=== PATIENT | male | born 1960 | race Caucasian/White ===

== ENCOUNTER 2019-03-04 21:43 | Emergency (ER) | payer SELFPAY ==
[2019-03-04 22:22] LABS: Absolute Lymphocytes (CBC) 1.5 K/uL (0.7-4.9); Basophils % 0.2 % (0-1.3); Hematocrit 53.7 % (39.6-49.0); Lymphocytes % 12.4 % (15.3-44.8); MPV 7.6 fL (7.6-11.3); RBC Red Blood Cell Count 5.75 M/uL (4.33-5.43)
[2019-03-04 22:37] LABS: ALT/SGPT 43 U/L (12-78); AST/SGOT 17 U/L (15-37); Albumin 3.9 g/dL (3.4-5.0); Alkaline Phosphatase 97 U/L (45-117); BUN Blood Urea Nitrogen 10 mg/dL (7-18); Bicarbonate 25 mmol/L (21-32); Bilirubin Total 0.7 mg/dL (0.2-1.0); Glucose Level 118 mg/dL (74-106); Lipase 563 U/L (73-393); Potassium 3.8 mmol/L (3.5-5.1); Protein, Total 8.5 g/dL (6.4-8.2); Sodium Level 137 mmol/L (136-145)
[2019-03-04] MEDS ORDERED: ONDANSETRON 4 MG/2 ML VIAL ONE (23:06)
--- NOTE | 2019-03-05 00:59 | EDPHYS ---
Physician Documentation [facility] Name: Kurtis Cross Age: 58 yrs Sex: Male : 1960 Arrival Date: 03/04/2019 Time: 21:46 Bed 5 Private MD: ED Physician Wing Tellez Historical: - Allergies: 03/04 22:09 Benadryl; aa1 - Home Meds: 22:09 None [Active]; aa1 - PMHx: 22:09 osteomyelitis; aa1 - PSHx: 22:09 arms sx r/t osteomyelitis; aa1 - Immunization history:: Flu vaccine is not up to date. - Social history:: Smoking status: Patient uses tobacco products, smokes one pack cigarettes per day. - Ebola Screening: : Patient denies exposure to infectious person Patient denies travel to an Ebola-affected area in the 21 days before illness onset. Vital Signs: 22:09 BP 151 / 111; Pulse 104; Resp 20; Temp 97.8; Pulse Ox 97% on R/A; Weight 78.02 kg; aa1 Height 5 ft. 8 in. (172.72 cm); Pain 7/10; 23:30 BP 147 / 99; Pulse 95; Resp 17 S; Pulse Ox 97% on R/A; Pain 7/10; jd3 03/05 00:56 BP 131 / 99; Pulse 96; Resp 18 S; Pulse Ox 97% on R/A; Pain 7/10; jd3 03/04 22:09 Body Mass Index 26.15 (78.02 kg, 172.72 cm) aa1 MDM: 03/04 22:11 Patient medically screened. ps1 03/04 22:09 Order name: CBC with Diff; Complete Time: 22:31 ps1 03/04 22:09 Order name: Lipase; Complete Time: 22:39 ps1 03/19 18:46 Interpretation: not at 3x normal criteria for pancreatitits . ps1 03/04 22:09 Order name: CMP; Complete Time: 22:39 ps1 03/04 22:09 Order name: CT Abd/Pelvis - IV Contrast Only; Complete Time: 18:48 ps1 03/04 22:09 Order name: IV Saline Lock; Complete Time: 22:18 ps1 03/04 22:09 Order name: Labs collected and sent; Complete Time: 22:18 ps1 Administered Medications: 22:57 Drug: Zofran 4 mg Route: IVP; Site: right antecubital; jd3 23:55 Follow up: Response: No adverse reaction jd3 03/05 00:55 Drug: Zofran 4 mg Route: PO; jd3 01:31 Follow up: Response: No adverse reaction jd3 01:06 Drug: [place] (7.5 mg-325 mg) 1 tabs Route: PO; jd3 01:31 Follow up: Response: No adverse reaction jd3 01:07 Drug: GI Cocktail without - (Maalox Suspension 30 ml, Lidocaine Liquid 2 % 15 jd3 ml) Route: PO; 01:31 Follow up: Response: No adverse reaction jd3 Disposition: 03/05/19 00:58 Discharged to Home. Impression: Nausea and vomiting, ascities. - Condition is Stable. - Discharge Instructions: Abdominal Pain, Adult, Ascites, Nausea, Adult. - Prescriptions for Bentyl 20 mg Oral Tablet - take 1 tablet by ORAL route every 6 hours As needed; 20 tablet. Carafate 1 gram Oral Tablet - take 1 tablet by ORAL route 4 times per day take on an empty stomach, beginning on waking and last dose at bedtime; 100 tablet. Zofran 4 mg Oral Tablet - take 1 tablet by ORAL route every 12 hours As needed; 20 tablet. Tramadol 50 mg Oral Tablet - take 1 tablet by ORAL route every 8 hours as needed; 12 tablet. - Work release form, Medication Reconciliation Form, Thank You Letter, Antibiotic Education, Prescription Opioid Use form. - Follow up: Gurvinder Parker MD; When: 48 Hours; Reason: Further diagnostic work-up, Recheck today's complaints, Continuance of care. Follow up: Emergency Department; When: As needed; Reason: Worsening of condition. - Problem is new. - Symptoms are unchanged. Addendum: 03/19/2019 18:48 Addendum: 58 y/o M presenting with nausea, vomiting, and ascities that he had for p s1 several weeks. Additionally he has had diarrhea. Feels fatigued and dehydrated. No fever. Non-bloody stools. No weakness. ROS: No RIDDLE, visual changes, No sore throat, PND, CP, pressure, NAYELY. + NVD, mild abdominal pain and swelling. PHY: AOx3, NCAT, PERRL, EOMI, oropharynx pink, normal ROM of neck. Mild tachycardia. No MRG. CTAB, no WWR., Abd mild distention with fluid wave. Not tympanic. Not surgical. Mild trace edema. POC: Pain control. Labs mild leukocytosis. No fever. CTAB neg for acute findings other than ascites. Pain improved prior to DC. PT to follow up with Dr. Welch. . Signatures: Dispatcher [employer] EDMS Lucero Dubois RN RN aa1 Tarun Casas RN RN jd3 Wing Tellez MD MD ps1 Corrections: (The following items were deleted from the chart) 03/05 01:32 00:58 03/05/2019 00:58 Discharged to Home. Impression: Nausea and vomiting; ascities. jd3 Condition is Stable. Forms are Medication Reconciliation Form, Thank You Letter, Antibiotic Education, Prescription Opioid Use. Follow up: Gurvinder Parker; When: 48 Hours; Reason: Further diagnostic work-up, Recheck today's complaints, Continuance of care. Follow up: Emergency Department; When: As needed; Reason: Worsening of condition. Problem is new. Symptoms are unchanged. ps1
--- NOTE | 2019-03-05 00:59 | ER ---
Nurse's Notes [facility] Name: Kurtis Cross Age: 58 yrs Sex: Male : 1960 Arrival Date: 03/04/2019 Time: 21:46 Bed 5 Private MD: Diagnosis: Nausea and vomiting;ascities Presentation: 03/04 22:05 Presenting complaint: Patient states: abd pain and distention with decreased appetite x aa1 3-4 weeks and has been having V/D x 4 days. Transition of care: patient was not received from another setting of care. Onset of symptoms was January 2019. Risk Assessment: Do you want to hurt yourself or someone else? Patient reports no desire to harm self or others. Initial Sepsis Screen: Does the patient meet any 2 criteria? HR > 90 bpm. No. Patient's initial sepsis screen is negative. Does the patient have a suspected source of infection? Yes: Acute abdominal pain. Care prior to arrival: None. 22:05 Method Of Arrival: Ambulatory aa1 22:05 Acuity: MIESHA 3 aa1 Triage Assessment: 22:09 General: Appears in no apparent distress. comfortable, Behavior is calm, cooperative, aa1 appropriate for age. Historical: - Allergies: 22:09 Benadryl; aa1 - Home Meds: 22:09 None [Active]; aa1 - PMHx: 22:09 osteomyelitis; aa1 - PSHx: 22:09 arms sx r/t osteomyelitis; aa1 - Immunization history:: Flu vaccine is not up to date. - Social history:: Smoking status: Patient uses tobacco products, smokes one pack cigarettes per day. - Ebola Screening: : Patient denies exposure to infectious person Patient denies travel to an Ebola-affected area in the 21 days before illness onset. Screenin:21 Abuse screen: Denies threats or abuse. Nutritional screening: No deficits noted. jd3 Tuberculosis screening: No symptoms or risk factors identified. Fall Risk IV access (20 points). Ambulatory Aid- None/Bed Rest/Nurse Assist (0 pts). Gait- Weak (10 pts.). Mental Status- Oriented to own ability (0 pts). Total Marion Fall Scale indicates Low Risk Score (25-44 pts). Fall prevention measures have been instituted. Side Rails Up X 2 Placed close to Nursing Station Frequent Obs/Assesments occuring Family Present and informed to notify staff if they need to leave bedside. Assessment: 22:18 General: Appears uncomfortable, Behavior is calm, cooperative, appropriate for age. jd3 Pain: Complains of pain in abdomen Quality of pain is described as aching, pressure. Neuro: Level of Consciousness is awake, alert, obeys commands, Oriented to person, place, time, situation. Cardiovascular: Reports chest pain, shortness of breath, Capillary refill < 3 seconds Patient's skin is warm and dry. Respiratory: Airway is patent Respiratory effort is even, unlabored, Respiratory pattern is regular, symmetrical, Denies cough, shortness of breath. GI: Abdomen is round distended, Bowel sounds present X 4 quads. Abd is soft and non tender X 4 quads. Reports lower abdominal pain, upper abdominal pain, bloating, constipation, nausea. : No signs and/or symptoms were reported regarding the genitourinary system. EENT: No signs and/or symptoms were reported regarding the EENT system. Derm: Skin is intact, Skin is dry, Skin is jaundiced, Skin temperature is warm. Musculoskeletal: Circulation, motion, and sensation intact. Range of motion: intact in all extremities. 23:30 Reassessment: Patient appears in no apparent distress at this time. Patient and/or jd3 family updated on plan of care and expected duration. Pain level reassessed. Patient is alert, oriented x 3, equal unlabored respirations, skin warm/dry/pink. awaiting CT results. 03/05 00:47 Reassessment: Patient appears in no apparent distress at this time. No changes from jd3 previously documented assessment. Patient and/or family updated on plan of care and expected duration. Pain level reassessed. Patient is alert, oriented x 3, equal unlabored respirations, skin warm/dry/pink. awaiting CT results and disposition. 01:28 Reassessment: Patient appears in no apparent distress at this time. Patient and/or jd3 family updated on plan of care and expected duration. Pain level reassessed. Patient is alert, oriented x 3, equal unlabored respirations, skin warm/dry/pink. reported understanding of discharge instructions, assisted pt to vehicle with family via wheelchair. Vital Signs: 03/04 22:09 BP 151 / 111; Pulse 104; Resp 20; Temp 97.8; Pulse Ox 97% on R/A; Weight 78.02 kg; aa1 Height 5 ft. 8 in. (172.72 cm); Pain 7/10; 23:30 BP 147 / 99; Pulse 95; Resp 17 S; Pulse Ox 97% on R/A; Pain 7/10; jd3 03/05 00:56 BP 131 / 99; Pulse 96; Resp 18 S; Pulse Ox 97% on R/A; Pain 7/10; jd3 03/04 22:09 Body Mass Index 26.15 (78.02 kg, 172.72 cm) aa1 ED Course: 03/04 21:46 Patient arrived in ED. ds1 22:03 Wing Tellez MD is Attending Physician. ps1 22:06 Triage completed. aa1 22:09 Arm band placed on right wrist. Patient placed in an exam room, on a stretcher. aa1 22:13 Inserted saline lock: 20 gauge in right antecubital area, using aseptic technique. jd3 Blood collected. 22:18 Tarun Casas RN is Primary Nurse. jd3 22:22 Patient has correct armband on for positive identification. Placed in gown. Bed in low jd3 position. Call light in reach. Side rails up X 1. Adult w/ patient. 22:33 Radiology exam delayed due to lab results not completed at this time. (BUN/Creatinine). mw3 22:51 Radiology exam delayed due to pt needs medication for nausea before scan. nurse to call [facility] CT when pt is ready. 23:29 CT Abd/Pelvis - IV Contrast Only In Process Unspecified. EDMS 03/05 00:56 Gurvinder Parker MD is Referral Physician. ps1 01:30 No provider procedures requiring assistance completed. IV discontinued, intact, jd3 bleeding controlled, No redness/swelling at site. Pressure dressing applied. Administered Medications: 03/04 22:57 Drug: Zofran 4 mg Route: IVP; Site: right antecubital; jd3 23:55 Follow up: Response: No adverse reaction jd3 03/05 00:55 Drug: Zofran 4 mg Route: PO; jd3 01:31 Follow up: Response: No adverse reaction jd3 01:06 Drug: [place] (7.5 mg-325 mg) 1 tabs Route: PO; jd3 01:31 Follow up: Response: No adverse reaction jd3 01:07 Drug: GI Cocktail without - (Maalox Suspension 30 ml, Lidocaine Liquid 2 % 15 jd3 ml) Route: PO; 01:31 Follow up: Response: No adverse reaction jd3 Outcome: 00:58 Discharge ordered by . ps1 01:30 Discharged to home via wheelchair, with family. jd3 01:30 Condition: stable 01:30 Discharge instructions given to patient, family, Instructed on discharge instructions, follow up and referral plans. medication usage, Demonstrated understanding of instructions, follow-up care, medications, Prescriptions given X 4. 01:32 Patient left the ED. jd3 Signatures: Dispatcher [employer] EDMS Lucero Dubois RN RN aa1 Jaelyn Ramirez1 Tarun Casas RN RN jd3 Wing Tellez MD MD ps1 Indira Hawthorne mw3
[2019-03-05] MEDS ORDERED: MAGNE/ALUM HYDROXD 30 ML UCUP ONE (01:06)
[2019-03-05] MEDS ORDERED: HYDROCODONE/APAP 7.5/325 MG TAB ONE (01:07)
[2019-03-05] MEDS ORDERED: ONDANSETRON 4 MG (ODT) TAB ONE (01:07)
[2019-03-05] MEDS ORDERED: LIDOCAINE VISCOUS 2% SOLN 15 ML UDC ONE (01:07)
--- NOTE | 2019-03-05 10:52 | RAD REPORT ---
EXAM DESCRIPTION: Abdomen Pelvis W Contrast CLINICAL HISTORY: Distension, abd pain. hx of etohism COMPARISON: None. TECHNIQUE: CT ABDOMEN PELVIS WITH IV CONTRAST on 03/04/2019 10:09 PM CDT This exam was performed according to our departmental dose-optimization program, which includes autom ated exposure control, adjustment of the mA and/or kV according to patient size and/or use of iterati ve reconstruction technique. FINDINGS: Lower lungs are clear. Abdomen: The liver is normal in appearance. There is no biliary dilatation. Gallbladder is normal in appearance. The pancreas and spleen are normal in appearance. Adrenal glands are normal. Right kidney is unremarkable. There is a small cyst in the lower pole of the left kidney. Abdominal aorta is normal in course and caliber without aneurysm. There is no free air. There is no r etroperitoneal adenopathy. Pelvis: There is no bowel obstruction. Urinary bladder is unremarkable. There is large amount of free pelvic fluid. Appendix is not well seen. There is mild nodularity of the anterior omentum. Skeleton: There are no acute osseous findings. No suspicious bony lesions. IMPRESSION: Ascites with mild nodularity of the anterior omentum. This is of unclear clinical signif icance. Electronically signed by: Cedric Ovalle MD 03/04/2019 11:37 PM CDT Due to temporary technical issues with the PACS/Fluency reporting system, reports are being signed by the in house radiologist as a courtesy to ensure prompt reporting. The interpreting radiologist is f ully responsible for the content of the report.
== END 2019-03-05 01:32 | disposition home or self-care (01) ==
LOC: ER 21:43
DX: R18.8 Other ascites (principal); F17.210 Nicotine dependence, cigarettes, uncomplicated
CPT/HCPCS: 36415; 74177; 80053; 83690; 85025; 96374; 99284; J2405; Q9967